=== PATIENT | female | born 1960 | race Native Hawaiian/Other Pacific Islander ===

== ENCOUNTER 2020-02-05 11:53 | Outpatient (CLI) | payer BC, OTHER | END 2020-02-05 21:12 | disposition home or self-care (01) | LOC: LAB 11:53 | DX: Z20.828 Contact with and (suspected) exposure to other viral communicable diseases (principal) | CPT/HCPCS: 87635; U0002 ==

== ENCOUNTER 2020-10-28 12:23 | Outpatient (CLI) | payer BC ==
[2020-10-28 13:15] LABS: PLATELET COUNT 295 K/uL (152-353)
[2020-10-28 13:52] LABS: POTASSIUM 4.1 mmol/L (3.6-5.2)
== END 2020-10-28 20:49 | disposition home or self-care (01) ==
LOC: LABW 12:23
PROVIDERS: ATTEND Internal Medicine Endocrinology, Diabetes & Metabolism
DX: E88.81 Metabolic syndrome and other insulin resistance (principal)
CPT/HCPCS: 80053; 80061; 81000; 82306; 82607; 83036; 85027